=== PATIENT | female | born 1950 | race Caucasian/White ===

== ENCOUNTER 2017-12-26 11:56 | Day surgery (SDC) | payer MEDICARE, OTHER ==
[2017-12-26] MEDS ORDERED: PROPOFOL 20 ML (13:09)
[2017-12-26] MEDS ORDERED: LIDOCAINE 2% (SDV) 5 ML INJ (13:09)
== END 2017-12-26 16:55 | disposition home or self-care (01) ==
LOC: GIL 11:56
DX: K21.9 Gastro-esophageal reflux disease without esophagitis (principal); K29.70 Gastritis, unspecified, without bleeding; E78.5 Hyperlipidemia, unspecified; E03.9 Hypothyroidism, unspecified; E66.9 Obesity, unspecified; Z68.35 Body mass index [BMI] 35.0-35.9, adult
CPT/HCPCS: 43239; 88305; 88312